=== PATIENT | female | born 1955 | race Asian ===

== ENCOUNTER 2016-09-04 17:48 | Observation (INO) | payer OTHER ==
[~2016-09-04] VITALS: Ht 157.5 cm; Wt 46.7 kg
--- NOTE | ~2016-09-04 | 2DMMODE ---
[facility] [place] [address] 2 D/M-MODE ECHOCARDIOGRAM Name: BILLY FARAH P Room #: 212-P ADM IN M.R.#: [id number] Admission: 09/04/16 Attend Phys: Harley Christie Discharge: Date of : 55 Date of Service: 09/05/16 1153 Report #: [id number] THIS REPORT FOR: //name// APPROVED REPORT Study performed: 09/05/2016 08:36:51 EXAM: Comprehensive 2D, Doppler, and color-flow Echocardiogram Patient Location: Echo lab Room #: [facility] Blood Pressure: 123/78 mmHg HR: 50 bpm Other Information Study Quality: Adequate Indications Chest Pain Echo Enhancing Agent Indication: Rule out Shunt Agent/Amount Used: Agitated Saline 7 cc 2D Dimensions RVDd: 28.32 mm LVEF(%): 50.76 (>50%) IVSd: 9.97 (7-11mm) LVOT Diam: 19.62 (18-24mm) LVDd: 37.70 mm PWd: 9.58 (7-11mm) Ascending Ao: 33.58 (22-36mm) LVDs: 28.15 (25-40mm) Aortic Root: 26.80 mm IVC: 16.00 mm Woodruff's LVEF: 50.76 % Volumes Left Atrial Volume (Systole) Single Plane 4CH: 28.50 mL Single Plane 2CH: 25.80 mL LA ESV Index: 20.00 mL/m2 Aortic Valve AoV Peak Daniele.: 1.10 m/s AO Peak Gr.: 4.82 mmHg LVOT Max P.75 mmHg LVOT Max V: 0.83 m/s NICOLE Vmax: 2.28 cm2 [facility] [address] [place] [address] 2 D/M-MODE ECHOCARDIOGRAM Name: BILLY FARAH Room #: 212-P [facility] IN ..#: [id number] Admission: 09/04/16 Attend Phys: Harley Christie Discharge: Date of : 55 Date of Service: 09/05/16 1153 Report #: [id number] Mitral Valve E/A Ratio: 1.7 MV Decel. Time: 226.39 ms MV E Max Daniele.: 0.72 m/s MV A Daniele.: 0.43 m/s MV PHT: 65.65 ms IVRT: 100.35 ms Pulmonary Valve PV Peak Daniele.: 0.73 m/s PV Peak Gr.: 2.14 mmHg Pulmonary Vein P Vein S: 47.3 m/s P Vein A: 31.25 m/s P Vein D: 56.6 m/s P Vein A Dur.: 131.5 msec Tricuspid Valve TR Peak Daniele.: 2.94 m/s RAP Estimate: 10.00 mmHg TR Peak Gr.: 34.63 mmHg Left Ventricle The left ventricle is normal size. There is normal LV segmental wall motion. There is normal left ventricular wall thickness. Left ventricular systolic function is normal. The left ventricular ejection fraction is within the normal range. LVEF is 55%. The left ventricular diastolic function is normal. Right Ventricle The right ventricle is normal size. The right ventricular systolic function is normal. Atria The left atrium size is normal. Possible PFO is noted on color flow doppler. The right atrium size is normal. Aortic Valve The aortic valve is normal in structure. Trace aortic regurgitation. There is no aortic valvular stenosis. Mitral Valve The mitral valve is normal in structure. Mild to moderate mitral regurgitation. No evidence of mitral valve stenosis. Tricuspid Valve The tricuspid valve is normal in structure. Moderate tricuspid regurgitation. [facility] [address] [place] [address] 2 D/M-MODE ECHOCARDIOGRAM Name: BILLY FARAH Room #: 212-P [facility] IN [facility]#: [id number] Admission: 09/04/16 Attend Phys: Harley Christie Discharge: Date of : 55 Date of Service: 09/05/16 1153 Report #: [id number] Pulmonic Valve Pulmonic valve is not well visualized. Trace pulmonic regurgitation. Great Vessels The aortic root is normal in size. IVC is normal in size and collapses <50% with inspiration. Pericardium There is no pericardial effusion. <Conclusion> The left ventricle is normal size. LVEF is 55%. The aortic valve is normal in structure. Trace aortic regurgitation. The mitral valve is normal in structure. Mild to moderate mitral regurgitation. Pulmonic valve is not well visualized. Trace pulmonic regurgitation. <ELECTRONICALLY SIGNED> By: Gerber Carrasquillo MD 09/05/16 1153 1153 1153 Gerber Carrasquillo MD /INF
--- NOTE | ~2016-09-04 | HC ---
[facility] [place] [address] CONSULTATION Name: BILLY FARAH Room #: 212-P [facility] IN M.R.#: [id number] Admission: 09/04/16 Attend Phys: Sergio Elmore MD Discharge: 09/05/16 Date of : 55 Report #: [id number] THIS REPORT FOR: //name// CC: Hien Elmore HISTORY OF PRESENT ILLNESS: The patient is a 61-year-old [place] female who I have seen years previously without significant documented coronary artery disease. Not lost to follow up for me for the last 5-[address] Irving' occasionally. Presented last night to the emergency room with some recurrent chest pressure, heaviness, which occurred at work and then extended into last night. It was substernal. No associated diaphoresis or shortness of breath, no nausea. EKG is sinus rhythm without significant changes. She denies PND, orthopnea, perhaps a slight decrease in exercise tolerance. PAST MEDICAL HISTORY: Positive for chest pain in the past, hypertension, hypercholesterolemia, reflux, tobacco use, rotator cuff repair, peptic ulcer. MEDICATIONS: At home are none. SOCIAL HISTORY: Positive tobacco, no alcohol. She is . She lives with her sister and her daughter. REVIEW OF SYSTEMS: Negative except for some occasional constipation issues. LABORATORY WORK: Sodium 142, potassium 3.8. Troponin is negative x 3. Liver function tests were normal. Lipids: Cholesterol 150, LDL 86, HDL 50, triglycerides 71. H and H is 12.5 and 35. TSH is 0.827. Chest x-ray: Borderline cardiomegaly. Echo Doppler preliminary, preserved LV function, mild pulmonary hypertension, PA pressure is 45-50, questionable small PFO. No wall motion abnormality. PHYSICAL EXAMINATION: VITAL SIGNS: Blood pressure 122/76, pulse is 60 and regular. HEENT: Eyes reveal xanthelasmas. Pharynx is clear. NECK: Shows preserved upstrokes without JVD or bruits. LUNGS: Clear. CARDIOVASCULAR: Regular rate and rhythm, S1, S2. There is no significant murmur or gallop. ABDOMEN: Soft. No HSM or abdominal bruit. EXTREMITIES: Reveal trace of edema. Pulses intact. NEUROLOGIC: Nonfocal. SKIN: Warm and dry without xanthoma or ulcer. MUSCULOSKELETAL: No gross joint deformity. [facility] [address] [place] [address] CONSULTATION Name: BILLY FARAH Room #: 212-P DIS IN M.R.#: [id number] Admission: 09/04/16 Attend Phys: Sergio Elmore MD Discharge: 09/05/16 Date of : 55 Report #: [id number] ASSESSMENT: 1. Chest pain. 2. History of peptic ulcer disease. 3. Mild chronic obstructive pulmonary disease, continued tobacco use. 4. Strong family history of premature coronary disease. RECOMMENDATIONS AND PLAN: Echo Doppler, I have reviewed preliminarily. We will proceed with nuclear pharmacologic stress testing. Now I suspect this is noncardiac. Lipids are well controlled off medications, would certainly recommend bland diet and PPI. We will continue to follow with you. We will have the results of the nuclear stress test later today. Thank you for asking us to assist in the care of this patient. <ELECTRONICALLY SIGNED> By: Heron Merida MD, FACC 09/10/16 0855 [id number] 1203 Heron Merida MD, FACC /nt
--- NOTE | ~2016-09-04 | EKG ---
[address] [address] ELECTROCARDIOGRAM REPORT Name: BILLY FARAH Room #: 212-[facility] IN M.R.#: [id number] Admission: 09/04/16 Attend Phys: Sergio Elmore MD Discharge: 09/05/16 Date of : 55 Report #: [id number] THIS REPORT FOR: //name// [facility] ED Test Date: 2016-09-04 Test Time: 18:14:38 Pat Name: BILLY FARAH Department: Room: [facility] Gender: F Manager Communication: HUMBLE : 1955 Requested By: Yessica Landeros Order Number: [id number] MD: Terry Taveras Measurements Intervals [place] Rate: 53 P: 24 IN: 201 QRS: 22 QRSD: 92 T: 1 QT: 432 QTc: 406 Interpretive Statements Sinus rhythm No previous ECG available for comparison Electronically Signed On 09-10-2016 7:48:13 CDT by Terry Taveras [email or web address] <ELECTRONICALLY SIGNED> By: Terry Taveras MD 09/10/16 0748 1814 1814 Terry Taveras MD /BRITTANY
[2016-09-04 17:48] VITALS: BP 139/90
[2016-09-04 20:12] LABS: ABSOLUTE NEUTROPHILS 2.4 thou/uL (1.4-8.2); BASOPHILS 0.4 % (0.0-2.0); EOSINOPHILS 2.7 % (0.0-3.0); HEMOGLOBIN 12.5 gm/dL (12.0-15.0); LYMPHOCYTES 40.2 % (24.0-44.0); MCHC 35.7 g/dL (28.0-37.0); MCV 89.8 fL (80.0-100.0); MONOCYTES 8.5 % (1.0-8.0); PLATELET COUNT 211 thou/uL (150-400); POLYS 48.2 % (36.0-66.0); RDW 14.9 % (10.5-14.5); WBC 4.9 thou/uL (4.0-11.0)
[2016-09-04 20:16] LABS: MANUAL DIFF NO
[2016-09-04 20:24] LABS: ANION GAP 8 mmol/L (7-16); BUN 10 mg/dL (7-18); CALCIUM 8.9 mg/dL (8.5-10.1); CHLORIDE 108 mmol/L (98-107); CO2 26 mmol/L (21-32); CREATININE 0.7 mg/dL (0.6-1.0); GLUCOSE 89 mg/dL (74-106); POTASSIUM 3.8 mmol/L (3.5-5.1); SODIUM 142 mmol/L (136-145)
[2016-09-04 20:32] LABS: ALBUMIN 3.6 g/dL (3.4-5.0); ALKALINE PHOSPHATASE 89 U/L (46-116); SGOT 24 U/L (15-37); SGPT 21 U/L (30-65); TOTAL BILIRUBIN 0.4 mg/dL (<0.1-1.0); TOTAL PROTEIN 6.6 g/dL (6.4-8.2); TROPONIN-I < 0.04 ng/mL (<0.04-0.07)
[2016-09-04 21:08] VITALS: BP 140/89
[2016-09-04 21:50] VITALS: BP 138/73
[2016-09-04 23:53] VITALS: BP 113/78
[2016-09-05 03:13] LABS: CHOLESTEROL 150 mg/dL (<200); HDL CHOLESTEROL 50 mg/dL (>40); LDL CHOLESTEROL 86 mg/dL (<100); TRIGLYCERIDE 71 mg/dL (<150); VLDL 14 mg/dL (<40)
[2016-09-05 03:26] LABS: SERUM ASSESSMENT Clear
[2016-09-05 04:27] VITALS: BP 123/78
[2016-09-05 07:30] VITALS: BP 122/76
[2016-09-05] MEDS ORDERED: PROTONIX40 M2 PO (13:05)
[2016-09-05 14:32] VITALS: BP 122/76
== END 2016-09-05 15:07 | disposition home or self-care (01) ==
LOC: ER 17:48 → EROBS 20:40 → 2N 20:40
PROVIDERS: Nurse Practitioner; Physician Assistant
DX: R07.89 Other chest pain (principal); E78.00 Pure hypercholesterolemia, unspecified; K21.9 Gastro-esophageal reflux disease without esophagitis; I10 Essential (primary) hypertension; F17.200 Nicotine dependence, unspecified, uncomplicated; J44.9 Chronic obstructive pulmonary disease, unspecified; Z88.2 Allergy status to sulfonamides; Z88.1 Allergy status to other antibiotic agents; Z87.11 Personal history of peptic ulcer disease; Z82.49 Family history of ischemic heart disease and other diseases of the circulatory system
CPT/HCPCS: 10081

== ENCOUNTER 2019-05-12 17:47 | Inpatient (IN) | payer OTHER ==
[~2019-05-12] VITALS: Ht 157.5 cm; Wt 48.9 kg
[~2019-05-12 17:47] MED LIST: PROTONIX40 M2 PO
[2019-05-12 17:48] VITALS: BP 112/68
[2019-05-12 18:17] LABS: URINE BILIRUBIN NEGATIVE (Negative); URINE BLOOD 2+ (Negative); URINE CLARITY CLEAR; URINE COLOR YELLOW; URINE GLUCOSE-RANDOM* NEGATIVE (Negative); URINE KETONES 1+ (Negative); URINE LEUKOCYTES-REFLEX NEGATIVE (Negative); URINE NITRITE-REFLEX NEGATIVE (Negative); URINE PROTEIN (DIPSTICK) TRACE (Negative); URINE SPECIFIC GRAVITY 1.025 (1.005-1.035); URINE UROBILINOGEN 0.2 E.U./dl (0.2-1.0)
[2019-05-12 18:41] LABS: SQUAMOUS >10 Many /LPF (0-3)
[2019-05-12 18:42] LABS: CASTS None Seen /LPF (None Seen); CRYSTALS None Seen /LPF (None Seen); MUCUS 4-6 Moderate strn/LPF (None Seen); URINE RBC 3-10 Few /HPF (0-2); URINE WBC-REFLEX 6-15 Few /HPF (0-5)
[2019-05-12 18:42] LABS: BASOPHILS 0.3 % (0.0-2.0); HEMATOCRIT 41.5 % (37.0-47.0); HEMOGLOBIN 14.5 gm/dL (12.0-15.0); LYMPHOCYTES 7.5 % (24.0-44.0); MCV 91.2 fL (80.0-100.0); MONOCYTES 7.2 % (1.0-8.0); PLATELET COUNT 188 thou/uL (150-400); RBC 4.55 mil/uL (4.20-5.00); RDW 14.9 % (10.5-14.5); WBC 9.4 thou/uL (4.0-11.0)
[2019-05-12 18:43] LABS: TRANSITIONAL EPITHEL CELL 0-3 Few /LPF (None Seen)
[2019-05-12 18:44] LABS: RENAL EPITHELIAL CELLS 0-3 Few /LPF (None Seen)
[2019-05-12 18:52] LABS: CALCIUM 9.9 mg/dL (8.5-10.1); POTASSIUM 3.7 mmol/L (3.5-5.1)
[2019-05-12 18:58] LABS: ALBUMIN 4.1 g/dL (3.4-5.0); TOTAL BILIRUBIN 0.7 mg/dL (<0.1-1.0); TOTAL PROTEIN 8.1 g/dL (6.4-8.2)
[2019-05-12 20:58] VITALS: BP 89/54
[2019-05-12 21:38] VITALS: BP 82/43
[2019-05-12 22:11] VITALS: BP 89/46
[2019-05-13] VITALS (7 sets, daily range): BP systolic 86–114; BP diastolic 47–62
--- NOTE | 2019-05-13 04:30 | NUR ---
PT MAKING PROGRESS TOWARDS GOALS. REPORTED FEVER IN ER BUT AFEBRILE SINCE ADMISSION. X1 DOSE OF FENTANYL FOR LUQ ADBOMINAL PAIN. HAS DENIED ANY NAUSEA. SEE CHARTING.
[2019-05-13 05:58] LABS: CREATININE 0.6 mg/dL (0.6-1.0); POTASSIUM 3.6 mmol/L (3.5-5.1)
[2019-05-13 06:13] LABS: CALCIUM 7.4 mg/dL (8.5-10.1)
--- NOTE | 2019-05-13 16:55 | NUR ---
Assumed patient care at 0700. a/o x4. up standby to bathroom. denies pain. still has lower grade tenp. progressing towards poc goals..
[2019-05-14 04:10] VITALS: BP 98/55
--- NOTE | 2019-05-14 05:00 | NUR ---
PATIENT IS ADVANCING IN HER CARE PLAN. VITAL SIGNS STABLE WITH PATIENT HAVING NO COMPLAINTS OF NAUSEA. PATIENT DID COMPLAIN OF ABDOMINAL PAIN WHICH WAS TREATED EFFECTIVELY THROUGH MEDICATION. FULLY ORIENTED, PATIENT IS ABLE TO COMMUNICATE NEEDS AND CALL APPROPRIATELY FOR NEEDS. BREATHING STABLE ON ROOM AIR EVIDENCED BY ASSESSMENT AND SPOT OXYGENATION CHECKS. UP MULTIPLE TIMES WITH STANDBY ASSISTANCE INCIDENT FREE. SHE REMAINS IN ISOLATION FOR INFLUENZA. CONTINUE PLAN OF CARE.
[2019-05-14 05:41] VITALS: BP 117/71
[2019-05-14 07:55] VITALS: BP 106/62
[2019-05-14] MEDS ORDERED: TAMIFLU30 MG PO (09:36)
[2019-05-14] MEDS ORDERED: ACETAMINOPHEN325 M1 PO (09:36)
[2019-05-14 10:03] VITALS: BP 106/62
--- NOTE | 2019-05-14 10:31 | NUR ---
progressing towards poc. dc to home.
== END 2019-05-14 11:01 | disposition home or self-care (01) | DRG 391 ==
LOC: ER 17:47 → 3W 20:25 → EROBS 20:25 → 3W 21:39 → ENTRNSPT 05-14 10:49 → EDTRNSPTSTS 05-14 10:54 → 3W 05-14 11:01
PROVIDERS: Emergency Medicine; Nurse Practitioner Family; Physician Assistant; ADMIT Hospitalist
DX: K52.9 Noninfective gastroenteritis and colitis, unspecified (principal); E43 Unspecified severe protein-calorie malnutrition; B96.20 Unspecified Escherichia coli [E. coli] as the cause of diseases classified elsewhere; J10.2 Influenza due to other identified influenza virus with gastrointestinal manifestations; F17.210 Nicotine dependence, cigarettes, uncomplicated; K76.0 Fatty (change of) liver, not elsewhere classified; R31.29 Other microscopic hematuria; Z87.11 Personal history of peptic ulcer disease; Z79.899 Other long term (current) drug therapy; Z88.1 Allergy status to other antibiotic agents; Z88.2 Allergy status to sulfonamides; Z80.8 Family history of malignant neoplasm of other organs or systems; Z82.49 Family history of ischemic heart disease and other diseases of the circulatory system; Z23 Encounter for immunization
CPT/HCPCS: 10879